=== PATIENT | female | born 1955 | race Caucasian/White ===

== ENCOUNTER 2017-03-03 07:19 | Day surgery (SDC) | payer BC ==
[2017-02-28 12:56] VITALS: BMI 23.5
[2017-03-03] MEDS ORDERED: PROPOFOL 20 ML ONE ×2 (08:48)
[2017-03-03 09:07] VITALS: TEMP 97
[2017-03-03 10:44] VITALS: BP 110/66; PULSE 56
--- NOTE | 2017-03-04 14:50 | PATH ---
Surgical Pathology Report Patient Name: EDVIN GRANT [facility]. Rec. #: [id number] /Age/Gender: 1955 (Age: 61) / F Account: [id number] Location: [facility]-ENDOSCOPY Taken: 03/03/2017 Received: 03/03/2017 Reported: 03/04/2017 Physicians: Godfrey Noland M.D. Specimen(s) Received A: BX DUODENUM B: BX GASTRIC MILD EROSIONS C: BX UPPER ESOPHAGUS Clinical History Iron deficiency anemia Rule out atrophy of duodenum, mild erosive gastritis, hiatal hernia, inlet patch upper esophagus Final Diagnosis A. DUODENUM, BIOPSY: DUODENAL MUCOSA WITH NO PATHOLOGIC CHANGES. NO HISTOLOGIC EVIDENCE OF GLUTEN SENSITIVE ENTEROPATHY (CELIAC SPRUE) IDENTIFIED. B. STOMACH, BIOPSY: MILD CHRONIC ACTIVE GASTRITIS. IMMUNOSTAIN FOR H. PYLORI IS POSITIVE (MANY ORGANISMS). C. DESIGNATED UPPER ESOPHAGUS, BIOPSY: SQUAMOUS AND GASTRIC MUCOSA WITH CHRONIC INFLAMMATION. NO INTESTINAL METAPLASIA IDENTIFIED (NO RADER'S IDENTIFIED). Electronically Signed Micah Terry M.D. Gross Description A. Received in formalin, labeled "biopsy duodenum" are 3 powell, irregular portions of soft tissue ranging from 0.1-0.2 cm. in greatest dimension. The specimens are submitted in toto in one cassette. B. Received in formalin, labeled "gastric biopsy" are 2 powell, irregular portions of soft tissue measuring 0.2 and 0.5 cm. in greatest dimension. The specimens are submitted in toto in one cassette. C. Received in formalin, labeled "biopsy upper esophagus" is a powell, irregular portion of soft tissue measuring 0.3 cm. in greatest dimension. The specimen is submitted in toto in one cassette. 03/03/201703/03/2017
== END 2017-03-03 10:30 | disposition home or self-care (01) ==
LOC: JASU-ENDO 07:19
PROVIDERS: ATTEND Internal Medicine Gastroenterology
PROC: 0DB68ZX Excision of Stomach, Via Natural or Artificial Opening Endoscopic, Diagnostic (ICD-10-PCS; 2017-03-03)
PROC: 0DB98ZX Excision of Duodenum, Via Natural or Artificial Opening Endoscopic, Diagnostic (ICD-10-PCS; principal; 2017-03-03 08:30)
DX: D50.9 Iron deficiency anemia, unspecified (principal); K25.9 Gastric ulcer, unspecified as acute or chronic, without hemorrhage or perforation; K44.9 Diaphragmatic hernia without obstruction or gangrene; R10.84 Generalized abdominal pain
CPT/HCPCS: 88305-TC; 88342-TC

== ENCOUNTER 2018-07-06 07:55 | Emergency (ER) | payer BC ==
[2018-07-06 08:03] VITALS: TEMP 97.9; BMI 24.2
[2018-07-06] MEDS ORDERED: diphenhydrAMINE HCL 25 MG CAPSULE (FP) PO ONE ×2 (08:22→08:37)
[2018-07-06] MEDS ORDERED: HYDROCORTISONE 0.5% TOPICAL OINTMENT TUBE TP ONE (08:23)
--- NOTE | 2018-07-06 08:24 | PDOC ---
History of Present Illness - General Chief Complaint: Allergic Reaction Stated Complaint: ALLERGY Time Seen by Provider: 07/06/18 08:10 History Source: Patient Exam Limitations: No Limitations - History of Present Illness Initial Comments: 07/06/18 08:24 63f with no pmh presents with pruritic rash over chest, abdomen and back for the past 5 days. She took one Benadryl pill last night with little relief. She changed laundry detergent 2 weeks ago and used it twice. Only history of allergy was to fish when she was a little girl. No new foods tried over the week. Denies difficulty breathing. Past History - Past Medical History Allergies/Adverse Reactions: Allergies Allergy/AdvReac Type Severity Reaction Status Date / Time No Known Allergies Allergy Unverified 03/09/14 13:09 Home Medications: Ambulatory Orders Cholecalciferol (Vitamin D3) [Vitamin D -] 400 unit PO DAILY 02/28/17 Ferrous Sulfate, Dried [Iron] 1 tab PO BID 02/28/17 Ranitidine [Zantac -] 1 tab PO BID 02/28/17 Diphenhydramine HCl [Benadryl -] 25 mg PO Q8H #90 capsule 07/06/18 Anemia: Yes Asthma: No Cancer: No Cardiac Disorders: No CVA: No COPD: No CHF: No Dementia: No Diabetes: No GI Disorders: No Disorders: No HTN: No Hypercholesterolemia: Yes Liver Disease: No Seizures: No Thyroid Disease: No - Surgical History Abdominal Surgery: No Appendectomy: No Cardiac Surgery: No Cholecystectomy: Yes Lung Surgery: No Neurologic Surgery: No Orthopedic Surgery: No - Immunization History Immunization Up to Date: No - Suicide/Smoking/Psychosocial Hx Smoking History: Never smoked Have you smoked in the past 12 months: No Information on smoking cessation initiated: No Hx Alcohol Use: No Drug/Substance Use Hx: No Substance Use Type: None Hx Substance Use Treatment: No Review of Systems - Review of Systems Able to Perform ROS?: Yes Is the patient limited Vincentian proficient: No Constitutional: No: Symptoms Reported HEENTM: No: Symptoms Reported Respiratory: No: Symptoms reported Cardiac (ROS): No: Symptoms Reported ABD/GI: No: Symptoms Reported : No: Symptoms Reported Musculoskeletal: No: Symptoms Reported Integumentary: Yes: See HPI Neurological: No: Symptoms reported *Physical Exam - Vital Signs Last Vital Signs Temp Pulse Resp BP Pulse Ox 97.9 F 54 L 16 110/60 100 07/06/18 07:59 07/06/18 07:59 07/06/18 07:59 07/06/18 07:59 07/06/18 07:59 - Physical Exam General Appearance: Yes: Nourished, Appropriately Dressed. No: Apparent Distress HEENT: positive: EOMI, WARREN, Normal ENT Inspection Respiratory/Chest: positive: Lungs Clear, Normal Breath Sounds. negative: Chest Tender, Respiratory Distress Cardiovascular: positive: Regular Rhythm, S1, S2, Bradycardia Gastrointestinal/Abdominal: positive: Normal Bowel Sounds, Flat, Soft. negative : Tender Musculoskeletal: positive: Normal Inspection. negative: CVA Tenderness Integumentary: positive: Other (pruritic erythematous rash over chest abdomen and back. ) Neurologic: positive: Fully Oriented, Alert, Normal Mood/Affect, Normal Response , Motor Strength 5/5 Moderate Sedation - Procedure Monitoring Vital Signs: Procedure Monitoring Vital Signs Temperature 97.9 F 07/06/18 07:59 Pulse Rate 54 L 07/06/18 07:59 Respiratory Rate 16 07/06/18 07:59 Blood Pressure 110/60 07/06/18 07:59 O2 Sat by Pulse Oximetry (%) 100 07/06/18 07:59 Medical Decision Making - Medical Decision Making 07/06/18 09:12 Probable allergic reaction to detergent. Feels better with Benadryl. Will discharge with prescription and referral to Dr. Simms, Dietetic Technician Registered. *DC/Admit/Observation/Transfer Diagnosis at time of Disposition: Allergy - Discharge Dispostion Disposition: HOME Decision to Admit order: No - Referrals Referrals: Froy Goff MD [Primary Care Provider] - Shereen Simms MD [Staff Physician] - - Patient Instructions Printed Discharge Instructions: DI for Allergy Testing Additional Instructions: Follow up with Dr. Simms for allergy testing. Use Benadryl daily until relief of symptoms. Come back to the emergency department for any new, worsening or concerning symptoms. - Post Discharge Activity
--- NOTE | 2018-07-06 09:17 | PDOC ---
Attending Attestation - Resident Resident Name: Emeka Barreto - ED Attending Attestation I have performed the following: I have examined & evaluated the patient, The case was reviewed & discussed with the resident, I agree w/resident's findings & plan, Exceptions are as noted - HPI HPI: 07/06/18 09:07 63 F with h/o HLD presents to ED with rash x 5 days. Pt reports itchy red rash to her chest, back, and arms. Pt denies F/C. Denies any crusting or open lesions. Denies pain. Pt has had allergies to fish in the past but states this was only as a child. Does not have any other known allergies. No new meds. Pt does report using new soap over the last week. Pt denies tongue or lip swelling, denies SOB/chest pain. Denies N/V/abdominal pain. - Physicial Exam PE: 07/06/18 09:09 "GENERAL: Awake, alert, and fully oriented, in no acute distress. HEAD: No signs of trauma EYES: PERRLA, EOMI, sclera anicteric, conjunctiva clear ENT: Auricles normal inspection, hearing grossly normal, nares patent, oropharynx clear without exudates. Moist mucosa NECK: Nontender, no stepoffs, Normal ROM, supple, no lymphadenopathy, JVD, or masses LUNGS: Breath sounds equal, clear to auscultation bilaterally. No wheezes, and no crackles HEART: Regular rate and rhythm, normal S1 and S2, no murmurs, rubs or gallops ABDOMEN: Soft, nontender, normoactive bowel sounds. No guarding, no rebound. No masses EXTREMITIES: Normal range of motion, no edema. No clubbing or cyanosis. No cords, erythema, or tenderness NEUROLOGICAL: Cranial nerves II through XII intact. 5/5 strength and sensation in all extremities, Normal speech, normal gait, normal cerebellar function SKIN: + papular blanching rash to chest, back, arms, no pustules or vesicles, no oral mucosal lesions, no palmar lesions - Medical Decision Making 07/06/18 09:16 63 F with rash, likely allergic reaction. No evidence of airway involvement. No signs of SJS/TENS. Likely allergic reaction to new soap. - Benadryl, prednisone, topical steroids - F/u allergy Pt is well appearing, with normal vitals. Clinically stable for DC at this time. I discussed the physical exam findings, ancillary test results and final diagnoses with the patient. I answered all of the patient's questions. The patient was satisfied with the care received and felt comfortable with the discharge plan and treatment plan. The patient agrees to follow up with the primary care physician within 24-72 hours.
[2018-07-06 09:50] VITALS: BP 114/69; PULSE 62
== END 2018-07-06 09:51 | disposition home or self-care (01) ==
LOC: JER 07:55
DX: T78.40XA Allergy, unspecified, initial encounter (principal); X58.XXXA Exposure to other specified factors, initial encounter; E78.00 Pure hypercholesterolemia, unspecified
CPT/HCPCS: 99282-25

== ENCOUNTER 2021-05-16 15:52 | Emergency (ER) | payer BC, OTHER ==
[2021-05-16 16:25] VITALS: TEMP 98.1; BMI 28.3
[2021-05-16] MEDS ORDERED: MECLIZINE HCL 25 MG TABLET (FP) PO ONE (17:07)
[2021-05-16] MEDS ORDERED: ACETAMINOPHEN/CAFFEINE/BUTALBITAL 1 TAB PO ONE (17:07)
[2021-05-16] MEDS ORDERED: METOCLOPRAMIDE HCL 10 MG TABLET (FP) PO ONE ×2 (17:07→17:50)
[2021-05-16] MEDS ORDERED: ACETAMINOPHEN/CAFFEINE/BUTALBITAL 1 TAB ONE (17:50)
[2021-05-16] MEDS ORDERED: MECLIZINE HCL 25 MG TABLET (FP) ONE (17:50)
[2021-05-16 18:27] LABS: BASO % 0.3 % (0-2.0); EOS % 1.2 % (0-4.5); HEMATOCRIT 38.3 % (32.4-45.2); HEMOGLOBIN 12.9 GM/dL (10.7-15.3); LYMPH % 9.5 % (8-40); MCH 29.9 pg (25.7-33.7); MCHC 33.8 g/dl (32.0-36.0); MEAN CELL VOLUME 88.4 fl (80-96); MEAN PLT VOLUME 10.2 fl (7.5-11.1); PLATELET COUNT 244 10^3/uL (134-434); RBC 4.33 M/mm3 (3.60-5.2); WHITE BLOOD COUNT 10.5 K/mm3 (4.0-10.0)
[2021-05-16 18:44] LABS: CHLORIDE 106 mmol/L (98-107); SODIUM 141 mmol/L (136-145)
[2021-05-16 18:46] LABS: CALCIUM 9.7 mg/dL (8.5-10.1)
[2021-05-16 18:47] LABS: ANION GAP 10 MMOL/L (8-16); BLOOD UREA NITROGEN 16.1 mg/dL (7-18); CO2 25 mmol/L (21-32); GLUCOSE,RANDOM 96 mg/dL (74-106)
[2021-05-16 18:49] LABS: SGPT/ALT 36 U/L (13-61)
[2021-05-16 18:50] LABS: CREATININE 0.7 mg/dL (0.55-1.3); SGOT/AST 30 U/L (15-37)
[2021-05-16 18:51] LABS: BILIRUBIN,TOTAL 0.5 mg/dL (0.2-1); TOT PROT 8.3 g/dl (6.4-8.2)
[2021-05-16 18:52] LABS: ALK PHOS 126 U/L (45-117)
[2021-05-16 21:57] VITALS: BP 121/74; PULSE 88
== END 2021-05-16 21:58 | disposition home or self-care (01) ==
LOC: JER 15:52
DX: G44.209 Tension-type headache, unspecified, not intractable (principal)
CPT/HCPCS: 36415; 70450-TC; 80053; 84484; 85025; 93005; 93010; 99285-25